=== PATIENT | male | born 1955 | race Hispanic/Latino ===

== ENCOUNTER 2017-02-25 01:00 | Emergency (ER) | payer OTHER ==
[2017-02-25] MEDS ORDERED: NACL 0.9% 500 ML IR ONE (02:31)
[2017-02-25] MEDS ORDERED: NACL 0.9% IR ONE (02:48)
[2017-02-25] MEDS ORDERED: XYLOCAINE 2%/EPI 1:100,000 INFILTRATI ONE (03:27)
[2017-02-25] MEDS ORDERED: BOOSTRIX IM ONE (03:27)
--- NOTE | 2017-02-25 04:57 | Emergency Department Report ---
- General Chief Complaint: Wound/Laceration Stated Complaint: R ARM LACERATION Time Seen by Provider: 02/25/17 03:21 Source: patient, family Mode of arrival: Ambulatory Limitations: No Limitations - History of Present Illness Initial Comments: Patient comes into the ER tonight with complaints of a laceration to his right elbow and multiple smaller lacerations to the palm of his right hand. Patient states that earlier tonight someone accidentally shut the door to his house and locked himself out. In trying to get back into the house he busted open the window with his elbow and resulted in to his right elbow and right hand. Patient does state that he has been drinking some tonight. Patient denies any numbness, tingling, loss of sensation. Patient states that he applied pressure to the areas and came straight here. Patient unsure of his last tetanus shot. Patient denies any pain with range of motion of the affected joints. - Related Data Home Medications Medication Instructions Recorded Confirmed Last Taken Aspirin [Aspirin BABY CHEW TAB] 81 mg PO DAILY 09/08/14 09/08/14 Unknown Folic Acid [Folvite] 1 mg PO DAILY 09/08/14 09/08/14 Unknown Olmesartan/Hydrochlorothiazide 1 tab PO DAILY 09/08/14 09/08/14 Unknown [Benicar HCT 20-12.5 mg] Thiamine [Vitamin B-1] 100 mg PO DAILY 09/08/14 09/08/14 Unknown Previous Rx's Medication Instructions Recorded Last Taken Type Cephalexin [Keflex] 500 mg PO QID #40 capsule 02/25/17 Unknown Rx Allergies Allergy/AdvReac Type Severity Reaction Status Date / Time No Known Allergies Allergy Verified 09/08/14 07:48 ED Review of Systems ROS: Stated complaint: R ARM LACERATION Other details as noted in HPI Constitutional: denies: chills, fever Eyes: denies: eye pain, eye discharge, vision change ENT: denies: ear pain, throat pain Respiratory: denies: cough, shortness of breath, wheezing Cardiovascular: denies: chest pain, palpitations Endocrine: no symptoms reported Gastrointestinal: denies: abdominal pain, nausea, diarrhea Genitourinary: denies: urgency, dysuria Musculoskeletal: arthralgia. denies: back pain, joint swelling Skin: denies: rash, lesions Neurological: denies: headache, weakness, paresthesias Psychiatric: denies: anxiety, depression Hematological/Lymphatic: denies: easy bleeding, easy bruising ED Past Medical Hx - Past Medical History Previous Medical History?: Yes Hx Hypertension: Yes - Surgical History Past Surgical History?: No - Social History Smoking Status: Current Every Day Smoker Substance Use Type: Alcohol - Medications Home Medications: Home Medications Medication Instructions Recorded Confirmed Last Taken Type Aspirin [Aspirin BABY CHEW TAB] 81 mg PO DAILY 09/08/14 09/08/14 Unknown History Folic Acid [Folvite] 1 mg PO DAILY 09/08/14 09/08/14 Unknown History Olmesartan/Hydrochlorothiazide 1 tab PO DAILY 09/08/14 09/08/14 Unknown History [Benicar HCT 20-12.5 mg] Thiamine [Vitamin B-1] 100 mg PO DAILY 09/08/14 09/08/14 Unknown History Cephalexin [Keflex] 500 mg PO QID #40 capsule 02/25/17 Unknown Rx ED Physical Exam - General Limitations: No Limitations General appearance: alert, in no apparent distress - Head Head exam: Present: atraumatic, normocephalic - Eye Eye exam: Present: normal appearance - ENT ENT exam: Present: mucous membranes moist - Neck Neck exam: Present: normal inspection - Respiratory Respiratory exam: Present: normal lung sounds bilaterally. Absent: respiratory distress - Cardiovascular Cardiovascular Exam: Present: regular rate (heart rate during examination at 92 bpm.), normal rhythm. Absent: systolic murmur, diastolic murmur, rubs, gallop - GI/Abdominal GI/Abdominal exam: Present: soft, normal bowel sounds - Rectal Rectal exam: Present: deferred - Extremities Exam Extremities exam: Present: full ROM, tenderness (mild tenderness to right elbow , right fifth MCP joint, palm of right hand.), normal capillary refill. Absent : normal inspection (multiple small lacerations noted to the palm of right hand , large multilayer laceration noted to posterior right elbow. Laceration to right elbow measures 7 cm, laceration to palmar surface of right fifth MCP joint measures 1 cm, flap-like puncture wound laceration to middle of right palm measures 0.5 cm. No active bleeding upon my evaluation.), joint swelling - Back Exam Back exam: Present: normal inspection - Neurological Exam Neurological exam: Present: alert, oriented X3, CN II-XII intact, normal gait, reflexes normal. Absent: motor sensory deficit - Psychiatric Psychiatric exam: Present: normal affect, normal mood - Skin Skin exam: Present: warm, dry, intact, normal color. Absent: rash ED Course Vital Signs 02/25/17 01:08 Temperature 98.3 F Pulse Rate 118 H Respiratory 20 Rate Blood Pressure 147/97 O2 Sat by Pulse 95 Oximetry - Laceration /Wound Repair Right Posterior Elbow Wound Location: upper extremity (right posterior elbow) Wound Length (cm): 7 Wound's Depth, Shape: into muscle (multilayer laceration partially injuring muscle tissue without separation.), linear Wound Explored: clean Irrigated w/ Saline (ccs): 120 Betadine Prep?: Yes Anesthesia: Lidocaine w/ Epi Volume Anesthetic (ccs): 15 Wound Repaired With: sutures Suture Size/Type: 3:0, proline Number of Sutures: 13 Layer Closure?: No Sterile Dressing Applied?: Yes Right Palm Hand Wound Location: upper extremity (middle of right palm) Wound Length (cm): 1 (0.5 actual length) Wound's Depth, Shape: flap (subcutaneous) Wound Explored: clean Irrigated w/ Saline (ccs): 30 Betadine Prep?: Yes Anesthesia: Lidocaine w/ Epi Volume Anesthetic (ccs): 1 Wound Repaired With: sutures Suture Size/Type: 4:0, proline Number of Sutures: 2 Layer Closure?: No Sterile Dressing Applied?: Yes Right Palm Finger Wound Location: upper extremity (Palm of right fifth MCP joint) Wound Length (cm): 1 Wound's Depth, Shape: linear (cutaneous) Wound Explored: clean Irrigated w/ Saline (ccs): 30 Betadine Prep?: Yes Anesthesia: Lidocaine w/ Epi Volume Anesthetic (ccs): 1 Wound Repaired With: sutures Suture Size/Type: 4:0, proline Number of Sutures: 3 Layer Closure?: No Sterile Dressing Applied?: Yes ED Medical Decision Making - Radiology Data Radiology results: image reviewed interpreted by me: X-ray right elbow: No acute bone pathology or foreign body noted. x-ray right hand: No acute fracture, no foreign bodies noted. - Medical Decision Making Patient is nontoxic and hemodynamically stable. Initial heart rate decreased during patient's visit here to 92 bpm. Patient tolerated laceration repair is without any complications difficulty. Overall total length of lacerations are 8.5 cm and were all closed with a total of 18 sutures. I will start patient on antibiotics appropriately and patient was given a booster to his tetanus immunization here in the ER. I'm instructed patient on proper wound care and signs to look for for any complications. Patient is neurovascularly intact distally to all injuries. Patient is in agreement with treatment plan patient is stable for discharge. Critical care attestation.: If time is entered above; I have spent that time in minutes in the direct care of this critically ill patient, excluding procedure time. ED Disposition Clinical Impression: Laceration of elbow, Hand laceration, Finger laceration, Multiple abrasions Disposition: - TO HOME OR SELFCARE Is pt being admited?: No Does the pt Need Aspirin: No Condition: Good Instructions: Laceration (ED), Suture Care (ED), Finger Laceration (ED) Prescriptions: Cephalexin [Keflex] 500 mg PO QID #40 capsule Referrals: PRIMARY CARE, [Primary Care Provider] - 3-5 Days [facility], ER [Other] - 03/11/17 (for suture removal) Time of Disposition: 05:21
[2017-02-25 05:23] VITALS: BP 153/98
--- NOTE | 2017-02-25 11:17 | XRay Report ---
LEFT ELBOW THREE VIEWS: 02/25/17 01:00:00 CLINICAL: Trauma and laceration by glass. FINDINGS: No fracture or dislocation. No foreign body identified in the soft tissues. Small olecranon spur and a prominent ulnohumeral osteophyte. A bandage overlies a laceration at the dorsal aspect of the elbow. IMPRESSION: No retained or body. Degenerative change.
--- NOTE | 2017-02-25 11:19 | XRay Report ---
RIGHT HAND 2 VIEWS: 02/25/17 01:16:00 CLINICAL: Trauma with laceration by glass. FINDINGS: No foreign body or glass identified. No fracture or dislocation. Mild arthritis of the digits. IMPRESSION: No retained glass identified.
== END 2017-02-25 03:30 | disposition home or self-care (01) ==
LOC: ED 01:00
DX: S51.011A Laceration without foreign body of right elbow, initial encounter (principal); S61.411A Laceration without foreign body of right hand, initial encounter; I10 Essential (primary) hypertension; F17.200 Nicotine dependence, unspecified, uncomplicated; S61.216A Laceration without foreign body of right little finger without damage to nail, initial encounter; W22.8XXA Striking against or struck by other objects, initial encounter; Y93.9 Activity, unspecified; Y92.9 Unspecified place or not applicable; Y99.9 Unspecified external cause status
CPT/HCPCS: 90471; 90715